=== PATIENT | male | born 1985 | race Caucasian/White ===

== ENCOUNTER 2020-02-03 11:17 | Emergency (ER) | payer BC ==
[2020-02-03] MEDS ORDERED: Aspirin 81 MG Tab.Chew ONE (11:43)
[2020-02-03] MEDS ORDERED: Aspirin 81 MG Tab.Chew PO ONE ×2 (11:44→11:51)
--- NOTE | 2020-02-03 11:54 | EDM.PDOC ---
ED HPI GENERAL MEDICAL PROBLEM - General Chief Complaint: Chest Pain Stated Complaint: POSSIBLE ANXIETY Time Seen by Provider: 02/03/20 11:48 Source of Information: Reports: Patient, RN Notes Reviewed History Limitations: Reports: No Limitations - History of Present Illness INITIAL COMMENTS - FREE TEXT/NARRATIVE: 35-year-old gentleman presents emergency department a complaint of chest pain, he states the pain started last night however he was able to get to sleep woke up again this morning with chest pain nauseated, shortness of breath, diaphoresis he does have tingling down his left arm he has no cardiac history does not use tobacco products does not take blood pressure medications no known diabetes no family history of heart disease no known cholesterol problems - Related Data Allergies Allergy/AdvReac Type Severity Reaction Status Date / Time No Known Allergies Allergy Verified 02/03/20 11:32 Home Meds: Home Meds buPROPion HCL [Wellbutrin Xl] 02/03/20 [History] Past Medical History Psychiatric History: Reports: Anxiety, Depression Social & Family History - Tobacco Use Smoking Status *Q: Never Smoker - Recreational Drug Use Recreational Drug Type: Reports: Marijuana/Hashish ED ROS GENERAL - Review of Systems Review Of Systems: See Below Constitutional: Reports: Diaphoresis HEENT: Reports: No Symptoms Respiratory: Reports: Shortness of Breath Cardiovascular: Reports: Chest Pain GI/Abdominal: Reports: Nausea : Reports: No Symptoms Musculoskeletal: Reports: No Symptoms ED EXAM, GENERAL - Physical Exam Exam: See Below Exam Limited By: No Limitations General Appearance: Alert, Anxious Respiratory/Chest: No Respiratory Distress, Lungs Clear, Normal Breath Sounds, No Accessory Muscle Use, Chest Non-Tender Cardiovascular: Regular Rate, Rhythm, No Murmur GI/Abdominal: Soft, Non-Tender (Without) Extremities: Normal Inspection, No Pedal Edema ( I understand) Course - Vital Signs Last Recorded V/S: Last Vital Signs Temp 97.9 F 02/03/20 11:40 Pulse 91 02/03/20 11:40 Resp 14 02/03/20 13:07 BP 155/102 H 02/03/20 13:07 Pulse Ox 97 02/03/20 13:07 - Orders/Labs/Meds Orders: Active Orders 24 hr Category Date Time Status Cardiac Monitoring [RC] .As Directed Care 02/03/20 11:51 Active EKG Documentation Completion [RC] ASDIRECTED Care 02/03/20 11:52 Active Chest 2V [CR] Stat Exams 02/03/20 11:52 Taken EKG 12 Lead [EK] Stat Ther 02/03/20 11:51 Ordered Labs: Laboratory Tests 02/03/20 02/03/20 Range/Units 12:19 12:19 WBC 11.3 H (4.5-11.0) K/uL RBC 5.50 (4.30-5.90) M/uL Hgb 16.7 H (12.0-15.0) g/dL Hct 50.4 (40.0-54.0) % MCV 92 (80-98) fL MCH 30 (27-31) pg MCHC 33 (32-36) % Plt Count 277 (150-400) K/uL Neut % (Auto) 81 H (36-66) % Lymph % (Auto) 11 L (24-44) % [place] % (Auto) 6 (2-6) % Eos % (Auto) 0 L (2-4) % Baso % (Auto) 1 (0-1) % Sodium 138 L (140-148) mmol/L Potassium 4.4 (3.6-5.2) mmol/L Chloride 98 L (100-108) mmol/L Carbon Dioxide 30 (21-32) mmol/L Anion Gap 14.4 H (5.0-14.0) mmol/L BUN 10 (7-18) mg/dL Creatinine 1.0 (0.8-1.3) mg/dL Est Cr Clr Drug Dosing 98.80 mL/min Estimated GFR (MDRD) > 60 (>60) Glucose 134 H (74-106) mg/dL Calcium 8.8 (8.5-10.1) mg/dL Total Bilirubin 0.5 (0.2-1.0) mg/dL AST 53 H (15-37) U/L ALT 131 H (12-78) U/L Alkaline Phosphatase 85 (46-116) U/L Troponin I < 0.017 (0.000-0.056) ng/mL Total Protein 7.3 (6.4-8.2) g/dL Albumin 3.9 (3.4-5.0) g/dL Globulin 3.4 (2.3-3.5) g/dL Albumin/Globulin Ratio 1.1 L (1.2-2.2) Meds: Medications Discontinued Medications Generic Name Dose Route Start Last Admin Trade Name Becka PRN Reason Stop Dose Admin Aspirin 324 mg 02/03/20 11:44 02/03/20 11:46 Aspirin PO 02/03/20 11:45 324 mg ONETIME ONE Administration Aspirin Confirm 02/03/20 11:43 Aspirin Administered 02/03/20 11:44 Dose 324 mg .ROUTE .STK-MED ONE Aspirin 324 mg 02/03/20 11:51 Aspirin PO 02/03/20 11:52 ONETIME ONE Lorazepam 1 mg 02/03/20 13:00 02/03/20 13:06 Ativan PO 02/03/20 13:01 1 mg ONETIME ONE Administration Departure - Departure Time of Disposition: 13:35 Disposition: Home, Self-Care 01 Condition: Fair Clinical Impression: Panic attack Referrals: PCP,None [Primary Care Provider] - Forms: ED Department Discharge Additional Instructions: Use Ativan as needed for chest pain type symptoms, please followup with your primary care provider in 3-5 days if not better, please call return to the emergency department with worsening of symptoms. Sepsis Event Note - Evaluation Sepsis Screening Result: No Definite Risk - Focused Exam Vital Signs: Vital Signs Temp Pulse Resp BP Pulse Ox 02/03/20 13:07 14 155/102 H 97 02/03/20 11:40 97.9 F 91 14 155/98 H 98 Date Exam was Performed: 02/03/20 Time Exam was Performed: 13:34 - My Orders Last 24 Hours: My Active Orders 02/03/20 11:51 Cardiac Monitoring [RC] .As Directed EKG 12 Lead [EK] Stat 02/03/20 11:52 EKG Documentation Completion [RC] ASDIRECTED Chest 2V [CR] Stat - Assessment/Plan Last 24 Hours: My Active Orders 02/03/20 11:51 Cardiac Monitoring [RC] .As Directed EKG 12 Lead [EK] Stat 02/03/20 11:52 EKG Documentation Completion [RC] ASDIRECTED Chest 2V [CR] Stat Plan: Assessment Acuity = acute Site and laterality = panic attack Etiology = generalized anxiety disorder Manifestations = chest pain, nausea, dyspnea, diaphoresis all improved Location of injury = Home Lab values = CBC, CMP, troponin all negative chest x-ray shows no acute process official read radiologist pending EKG demonstrates a sinus rhythm Plan He had some improvement with the Ativan provided prescription written for Ativan 1 mg p.o. 3 times daily PRN total #10 he is to follow-up with his primary care in the next 3 to 5 days for reevaluation, risks benefits and alternatives were discussed with him This note was dictated using [employer] voice recognition software please call with any questions on syntax or grammar.
[2020-02-03] MEDS ORDERED: LORazepam 1 MG Tab PO ONE (13:00)
--- NOTE | 2020-02-04 11:14 | CR ---
CHEST: 2 view CLINICAL HISTORY:Chest pain COMPARISON:None FINDINGS: The heart size, pulmonary vascularity and hilar structures are normal. No infiltrate effusion or pneumothorax is seen. IMPRESSION: No acute cardiopulmonary process.
== END 2020-02-03 13:52 | disposition home or self-care (01) ==
LOC: JP.ED 11:17
DX: F41.0 Panic disorder [episodic paroxysmal anxiety] (principal); F32.9 Major depressive disorder, single episode, unspecified; Z79.899 Other long term (current) drug therapy
CPT/HCPCS: 36415; 71046; 80053; 84484; 85025; 93005; 99285; A9270